=== PATIENT | female | born 1995 | race Caucasian/White ===

== ENCOUNTER 2018-08-21 00:34 | Observation (INO) ==
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
[2018-08-21] MEDS ORDERED: Ondansetron 4 MG/2 ML VIAL IVP ONE (01:28)
[2018-08-21] MEDS ORDERED: Naloxone 0.4 MG/ML INJ IVP PRN (05:38)
[2018-08-21 06:40] LABS: Basophils % 0.3 %; Eosinophils % 0.3 %; Hematocrit 37.1 % (35.3-44.9); Hemoglobin 11.6 g/dL (11.5-15.4); Immature Granulocytes % 0.4 % (0-4); Lymphocytes # 1.4 K/mcL (0.6-4.6); Lymphocytes % 8.5 %; Mean Corpuscular HGB Conc 31.3 g/dL (31.6-35.5); Mean Corpuscular Hemoglobin 24.8 pg (28.0-33.3); Mean Corpuscular Volume 79.3 fL (83.0-100.0); Mean Platelet Volume 9.1 fL (9.4-12.4); Monocytes # 0.6 K/mcL (0.0-1.3); Monocytes % 3.8 %; Neutrophils # 13.9 K/mcL (1.6-8.9); Platelet Count 391 K/mcL (140-400); Red Blood Count 4.68 M/mcL (3.82-4.97); Red Cell Distribution Width 17.5 % (11.5-14.5); Segmented Neutrophils % 86.7 %
[2018-08-21 06:58] LABS: Alanine Aminotransferase 10 Units/L (7-52); Albumin 3.9 g/dL (3.5-5.7); Albumin/Globulin Ratio 1.4 (1.1-2.2); Alkaline Phosphatase 66 Units/L (34-104); Aspartate Amino Transferase 9 Units/L (13-39); BUN/Creatinine Ratio 11 (6-26); Bilirubin,Total 0.3 mg/dL (0.3-1.0); Blood Urea Nitrogen 6 mg/dL (6-20); Calcium 9.1 mg/dL (8.6-10.3); Carbon Dioxide 22 mEq/L (23-29); Chloride 107 mEq/L (98-107); Globulin 2.7 g/dL (2.4-3.5); Glucose 134 mg/dL (70-105); Magnesium 1.7 mg/dL (1.6-2.6); Osmolality,Calculated 286 (280-300); Sodium 138 mEq/L (136-145); Total Protein 6.6 g/dL (6.4-8.9); eGFR For Non-African Americans > 60 (> 60)
[2018-08-21 11:37] VITALS: BP 122/54
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
[2018-08-21 13:49] LABS: Bilirubin,Urine Negative (Negative); Blood,Urine Negative (Negative); Clarity,Urine Clear (Clear); Color,Urine Dark Yellow (Yellow); Glucose,Urine (UA) Normal (Normal); Ketones,Urine Negative (Negative); Leukocyte Esterase,Urine Negative (Negative); Nitrite,Urine Negative (Negative); Protein,Urine 30 mg/dL (Neg-Trace); Urobilinogen,Urine Normal (Normal)
--- NOTE | 2018-08-21 13:50 | Discharge Summary ---
- NOTES TO OUTPATIENT PROVIDER Notes to Outpatient Provider: Patient with PMHx of substance abuse, reported history of depression was admitted for the initial concern of OD. She later changed her story and stated that she never had intention to harm herself nor took the meds. She was observed overnight without any events and will be d ischarged home on PO lexapro 10mg per psych recs. No inpatient psychiatric admission was recommended. Orders not resulted at time of discharge: Pending orders 08/21/18 13:40 Urinalysis Reflex Cult & Micro [URIN] Routine Date of Encounter: 08/21/18 Time of Encounter: 11:00 - Discharge Diagnosis (1) Overdose Priority: Primary Status: Acute Qualifiers: Qualified Code(s): T50.902A - Poisoning by unspecified drugs, medicaments and biological substances, intentional self-harm, initial encounter (2) DVT prophylaxis Priority: Secondary Status: Acute (3) Adjustment disorder with mixed anxiety and depressed mood Priority: Secondary Status: Acute Hospital course: Ms. Womack is a 22 year old female with PMHx of substance abuse, reported history of depression was admitted for the initial concern of OD. UDS +Ve for amphetamine and marijuana. She later changed her story and stated that she never had intention to harm herself nor took the meds. She was observed overnight without any events and will be discharged home on PO lexapro 10mg per psych recs. No inpatient psychiatric admission was recommended. Despite leukocytosis of 17.4, she did not have any signs and symptoms of infection with negative CXR/UA. Discharge discussed with: patient, nurse - Time Spent with Patient Total time spent providing and/or coordinating discharge services: 25 mins - Discharge Medications Prescriptions: Escitalopram [Lexapro] 10 mg PO DAILY #30 tablet Home Medications: Escitalopram [Lexapro] 10 mg PO DAILY #30 tablet 08/21/18 [Rx] Allergies/Adverse Reactions: Allergy/AdvReac Type Severity Reaction Status Date / Time No Known Allergies Allergy Verified 07/21/15 12:19 Date of admission: 08/21/18 00:34 Primary care physician: PCP NONE Consults: 08/21/18 03:11 Consult to Psychiatry [CONS] Routine Consulting Provider: Psychiatry Brenda Reason consult: Other Other reason and/or additional details: medication overdose - Constitutional Vitals: Temp Pulse Resp BP Pulse Ox 98.9 F 111 18 122/54 95 08/21/18 11:00 08/21/18 11:00 08/21/18 11:00 08/21/18 11:00 08/21/18 13:00 Exam: Gen.: Vitals noted. No acute distress. Alert, awake and oriented * 3 to person, place, and time Cardiac: RRR, no murmur, +S1/S2, No BLE edema Pulmonary: CTA bilaterally, no wheezes, rales or rhonchi Abdomen: soft, nontender, BS noted, no guarding, non-distended. Neuro: grossly non-focal - Patient Status Disposition: Home, Self-Care Condition: Fair Functional capacity at discharge: independent ambulation Overall status at discharge: patient is back to baseline - Discharge Instructions Follow Up With: Luz Nix MD [Partnered Physician] - NONE,PCP [Primary Care Provider] - Additional Instructions: Started on PO Lexapro 10mg QD Follow up outpatient for counseling and outpatient psychiatric treatment - Diet and Activity Activity: resume usual activities as tolerated Diet: regular diet
[2018-08-21 13:53] LABS: Bacteria,Urine Moderate per hpf (None-Few); Hyaline Casts,Urine None Seen per lpf (None-Few); Squamous Epithelial Cell,Urine Many per lpf (None-Few)
--- NOTE | 2018-08-23 21:21 | Electrocardiograph Report ---
[address] [address] Test Date: 2018-08-21 Pat Name: Christal Womack Department: 110 Room: 2N07 Gender: F Pairer Odds: : 1995 Requested By: Lubna Layton Order Number: [id number] Reading MD: eMrcy Castellanos Measurements Intervals [place] Rate: 120 P: 74 [place]: 168 QRS: 70 QRSD: 94 T: 51 QT: 427 QTc: 498 Interpretive Statements SINUS TACHYCARDIA NONSPECIFIC T-WAVE ABNORMALITY Electronically Signed On 08-23-2018 21:19:42 EST by Mercy Castellanos
== END 2018-08-21 16:40 | disposition home or self-care (01) ==
LOC: 2NNU → SUATTDRO 00:34
PROVIDERS: ADMIT Internal Medicine; ATTEND Internal Medicine

== ENCOUNTER 2018-12-14 06:34 | Inpatient (IN) ==
[2018-12-14 07:16] LABS: Bilirubin,Urine Negative (Negative); Blood,Urine Negative (Negative); Clarity,Urine Clear (Clear); Color,Urine Yellow (Yellow); Glucose,Urine (UA) Normal (Normal); Ketones,Urine Negative (Negative); Leukocyte Esterase,Urine Negative (Negative); Nitrite,Urine Negative (Negative); PH,Urine 5.5 pH Units (5.0-8.0); Protein,Urine Negative (Neg-Trace); Specific Gravity,Urine 1.026 (1.010-1.025); Urobilinogen,Urine Normal (Normal)
[2018-12-14 07:17] LABS: Amphetamine Screen,Urine Negative ng/mL (Cutoff=1000); Barbiturate Screen,Urine Negative ng/mL (Cutoff=200)
[2018-12-14 07:18] LABS: Benzodiazepines Screen,Urine Negative ng/mL (Cutoff=300); Cannabinoid Screen,Urine Negative ng/mL (Cutoff = 50); Cocaine Screen,Urine Negative ng/mL (Cutoff= 300); Opiate Screen,Urine Negative ng/mL (Cutoff=300); Phencyclidine Screen,Urine Negative ng/mL (Cutoff=25)
[2018-12-14] MEDS ORDERED: Tdap (Boostrix) Vaccine 0.5 ML SYRINGE IM ONE (07:24)
--- NOTE | 2018-12-14 07:29 | Emergency Department Note ---
Disposition Clinical Impression: Suicidal ideation Disposition: Admitted As Inpatient Condition: Good Time of Disposition: 11:54 Psych HPI - General Chief Complaint: ED Psychiatric Symptoms Stated Complaint: SI Time Seen by Provider: 12/14/18 06:40 Source: patient Mode of arrival: ambulatory Limitations: no limitations Nursing Notes Reviewed: Yes Vital Signs Reviewed: Yes - History of Present Illness HPI Narrative: Alert and oriented nontoxic-appearing 23-year-old female presents for evaluation of agitation and progressively worsening suicidal ideation. She states yesterday she had a court date and was provided paperwork that would help her get arranged to see a counselor for both mental health and substance abuse. She states that sometime during yesterday evening, she had misplaced her paperwork. She states that this caused fever increasingly more agitated and states "I took it out of my family and then on myself". She reports she could not verbally aggressive with family members. She then took a kitchen knife and attempted to cut her throat. Very small superficial laceration noted to the anterior neck. Bleeding controlled at this time. She states a history of prior attempts by cutting her neck as well as her wrist. Tetanus immunization status is not up-to-date. She denies any homicidal ideation. She denies any auditory or visual hallucinations. She denies any alcohol use. She does admit to recreational drug use of a polysubstances including Xanax, Valium, "pain pills", methamphetamine, and heroin. She states that she last used recreational drugs earlier this week and admits to this being "nerve pills". Pt complaint: suicidal ideation, feels depressed, other (Agitation) Duration: constant History of similar episodes: Yes Improves with: none Worsens with: none Context: recent drug abuse Alleged intoxication: No Associated Psychiatric Symptoms: suicidal ideation Associated symptoms: Reports: denies other symptoms Traumatic symptoms: denies traumatic injury Treatments prior to arrival: none Self harm or harm to others: admits thoughts of self harm, has acted on plan - Related Data Home Medications Medication Instructions Recorded Confirmed No Known Home Drugs 09/22/18 09/22/18 Allergies Allergy/AdvReac Type Severity Reaction Status Date / Time No Known Allergies Allergy Verified 07/21/15 12:19 All systems ED: reviewed and negative except as stated. Review of Systems: As Per HPI Constitutional: Denies: fever, chills, weakness, weight change Eyes: Denies: eye pain, eye discharge, vision change ENT ED: Denies: ear pain, throat pain, dental pain, hearing loss, epistaxis, congestion, dysphagia Cardiovascular: Denies: chest pain, palpitations, dyspnea on exertion, edema, syncope Respiratory: Denies: cough, dyspnea, wheezes, hemoptysis, stridor Gastrointestinal: Denies: abdominal pain, nausea, vomiting, diarrhea, constipation, hematemesis, melena, hematochezia Genitourinary: Denies: dysuria, frequency, hematuria, discharge Musculoskeletal: Denies: back pain, neck pain, arthralgia, myalgia Integumentary: Denies: rash, abrasion, lesions Neurological: Denies: headache, weakness, numbness, paresthesias, confusion, abnormal gait, vertigo Psychiatric: Reports: as per HPI, depression, suicidal thoughts, other (Agitation). Denies: anxiety, homicidal thoughts, auditory hallucinations, visual hallucinations Endocrine: Denies: fatigue Hematological/Lymphatic: Denies: easy bleeding, easy bruising Allergic/Immunologic: Denies: facial swelling, urticaria Past Medical History - Past Medical History Attestation: Yes The following information was validated with the patient. Source: patient, nursing notes reviewed Medical history: Reports: seizures, TIA, other Surgical history: Reports: orthopedic, other (Excision of a lesion from her foot) Psychiatric history: Reports: depression, prior suicide attempt PLATING OPERATOR history: Reports: no PLATING OPERATOR history - Social History Smoking Status: Never smoker Smokeless Tobacco Status: No Alcohol use: Reports: none Drug use: Reports: marijuana, other Physical Exam - General Limitations: no limitations General appearance: alert, in no apparent distress - Head Head exam: atraumatic, normocephalic, normal inspection - Eye Eye exam: Present: normal appearance, PERRL, EOMI. Absent: conjunctival injection - ENT ENT exam: mucous membranes moist - Neck Neck exam: Present: full ROM, other (Superficial abrasion noted to the anterior neck. Bleeding controlled at this time. Wound will not require primary closure.) - Chest Chest inspection: Present: normal inspection, symmetric chest wall rise - Respiratory Respiratory exam: Present: normal lung sounds bilaterally. Absent: respiratory distress, wheezes, stridor, accessory muscle use, prolonged expiratory phase - Cardiovascular Cardiovascular exam: Present: regular rate, normal rhythm, normal heart sounds - Abdominal Exam Abdominal exam: Present: soft, Non-Tender, normal bowel sounds - Extremities Exam Extremities exam: Present: normal inspection, full ROM - Neurological Exam Neurological exam: Present: alert, oriented X3, normal gait - Psychiatric Psychiatric exam: Present: suicidal ideation - Skin Skin exam: Present: warm, dry Course Course Narrative: 1150: The patient has been evaluated by 1A and it has been determined that she will be admitted to the inpatient psychiatric facility here for further evaluation. [place] slip is signed and on the chart. Vital Signs Temperature 98.1 F 12/14/18 06:35 Pulse Rate 86 12/14/18 06:35 Respiratory Rate 18 12/14/18 06:35 Blood Pressure 120/71 12/14/18 06:35 O2 Sat by Pulse Oximetry 100 12/14/18 06:35 Temperature 98.1 F 12/14/18 06:35 Pulse Rate 86 12/14/18 06:35 Respiratory Rate 18 12/14/18 06:35 Blood Pressure 120/71 12/14/18 06:35 O2 Sat by Pulse Oximetry 100 12/14/18 06:35 Oxygen Delivery Oxygen Delivery Room Air Psych - Lab Data Lab results reviewed: Yes I reviewed the patient's lab results. Lab results narrative: Lab Results 12/14/18 12/14/18 12/14/18 Range/Units 07:02 07:02 07:02 WBC (4.3-11.1) K/mcL RBC (3.82-4.97) M/mcL Hgb (11.5-15.4) g/dL Hct (35.3-44.9) % MCV (83.0-100.0) fL MCH (28.0-33.3) pg MCHC (31.6-35.5) g/dL RDW (11.5-14.5) % Plt Count (140-400) K/mcL MPV (9.4-12.4) fL Immature Gran % (0-4) % Seg Neutrophils % % Lymphocytes % % Monocytes % % Eosinophils % % Basophils % % Neutrophils # (1.6-8.9) K/mcL Lymphocytes # (0.6-4.6) K/mcL Monocytes # (0.0-1.3) K/mcL Eosinophils # (0.0-0.6) K/mcL Basophils # (0.0-0.2) K/mcL Sodium (136-145) mEq/L Potassium (3.5-5.1) mEq/L Chloride (98-107) mEq/L Carbon Dioxide (23-29) mEq/L BUN (6-20) mg/dL Creatinine (0.60-1.20) mg/dL Est GFR ( Amer) (> 60) Est GFR (Non-Af Amer) (> 60) BUN/Creatinine Ratio (6-26) Glucose (70-105) mg/dL Calculated Osmolality (280-300) Calcium (8.6-10.3) mg/dL Urine Color Yellow (Yellow) Urine Clarity Clear (Clear) Urine pH 5.5 (5.0-8.0) pH Units Ur Specific Gallant 1.026 H (1.010-1.025) Urine Protein Negative (Neg-Trace) mg/dL Urine Glucose (UA) Normal (Normal) mg/dL Urine Ketones Negative (Negative) mg/dL Urine Blood Negative (Negative) Urine Nitrite Negative (Negative) Urine Bilirubin Negative (Negative) Urine Urobilinogen Normal (Normal) mg/dL Ur Leukocyte Esterase Negative (Negative) Urine Test Negative (Negative) Salicylates (15.0-30.0) mg/dL Urine Opiates Screen Negative (Voyaxl=962) ng/mL Acetaminophen (10-20) mcg/mL Ur Barbiturates Screen Negative (Cnzjov=309) ng/mL Ur Phencyclidine Scrn Negative (Cutoff=25) ng/mL Ur Amphetamines Screen Negative (Rtwgqr=2852) ng/mL U Benzodiazepines Scrn Negative (Nvhiwm=567) ng/mL Urine Cocaine Screen Negative (Cutoff= 300) ng/mL U Marijuana (THC) Screen Negative (Cutoff = 50) ng/mL Ur Drug Screen Interp See Below Ethyl Alcohol (Less than 10) mg/dL 12/14/18 12/14/18 Range/Units 07:04 07:04 WBC 9.9 (4.3-11.1) K/mcL RBC 5.11 H (3.82-4.97) M/mcL Hgb 13.0 (11.5-15.4) g/dL Hct 41.5 (35.3-44.9) % MCV 81.2 L (83.0-100.0) fL MCH 25.4 L (28.0-33.3) pg MCHC 31.3 L (31.6-35.5) g/dL RDW 16.9 H (11.5-14.5) % Plt Count 390 (140-400) K/mcL MPV 9.5 (9.4-12.4) fL Immature Gran % 0.4 (0-4) % Seg Neutrophils % 66.1 % Lymphocytes % 23.0 % Monocytes % 7.3 % Eosinophils % 2.5 % Basophils % 0.7 % Neutrophils # 6.5 (1.6-8.9) K/mcL Lymphocytes # 2.3 (0.6-4.6) K/mcL Monocytes # 0.7 (0.0-1.3) K/mcL Eosinophils # 0.3 (0.0-0.6) K/mcL Basophils # 0.1 (0.0-0.2) K/mcL Sodium 138 (136-145) mEq/L Potassium 4.1 (3.5-5.1) mEq/L Chloride 105 (98-107) mEq/L Carbon Dioxide 27 (23-29) mEq/L BUN 15 (6-20) mg/dL Creatinine 0.53 L (0.60-1.20) mg/dL Est GFR ( Amer) > 60 (> 60) Est GFR (Non-Af Amer) > 60 (> 60) BUN/Creatinine Ratio 28 H (6-26) Glucose 87 (70-105) mg/dL Calculated Osmolality 286 (280-300) Calcium 9.2 (8.6-10.3) mg/dL Urine Color (Yellow) Urine Clarity (Clear) Urine pH (5.0-8.0) pH Units Ur Specific Gallant (1.010-1.025) Urine Protein (Neg-Trace) mg/dL Urine Glucose (UA) (Normal) mg/dL Urine Ketones (Negative) mg/dL Urine Blood (Negative) Urine Nitrite (Negative) Urine Bilirubin (Negative) Urine Urobilinogen (Normal) mg/dL Ur Leukocyte Esterase (Negative) Urine Test (Negative) Salicylates < 2.5 L (15.0-30.0) mg/dL Urine Opiates Screen (Yiqdct=253) ng/mL Acetaminophen < 10 L (10-20) mcg/mL Ur Barbiturates Screen (Xeqspc=788) ng/mL Ur Phencyclidine Scrn (Cutoff=25) ng/mL Ur Amphetamines Screen (Efcpqw=5094) ng/mL U Benzodiazepines Scrn (Dzrmtn=937) ng/mL Urine Cocaine Screen (Cutoff= 300) ng/mL U Marijuana (THC) Screen (Cutoff = 50) ng/mL Ur Drug Screen Interp Ethyl Alcohol < 10 (Less than 10) mg/dL Result diagrams: 12/14/18 07:04 12/14/18 07:04 Lab Results 12/14/18 12/14/18 12/14/18 Range/Units 07:02 07:02 07:02 WBC (4.3-11.1) K/mcL RBC (3.82-4.97) M/mcL Hgb (11.5-15.4) g/dL Hct (35.3-44.9) % MCV (83.0-100.0) fL MCH (28.0-33.3) pg MCHC (31.6-35.5) g/dL RDW (11.5-14.5) % Plt Count (140-400) K/mcL MPV (9.4-12.4) fL Immature Gran % (0-4) % Seg Neutrophils % % Lymphocytes % % Monocytes % % Eosinophils % % Basophils % % Neutrophils # (1.6-8.9) K/mcL Lymphocytes # (0.6-4.6) K/mcL Monocytes # (0.0-1.3) K/mcL Eosinophils # (0.0-0.6) K/mcL Basophils # (0.0-0.2) K/mcL Sodium (136-145) mEq/L Potassium (3.5-5.1) mEq/L Chloride (98-107) mEq/L Carbon Dioxide (23-29) mEq/L BUN (6-20) mg/dL Creatinine (0.60-1.20) mg/dL Est GFR ( Amer) (> 60) Est GFR (Non-Af Amer) (> 60) BUN/Creatinine Ratio (6-26) Glucose (70-105) mg/dL Calculated Osmolality (280-300) Calcium (8.6-10.3) mg/dL Urine Color Yellow (Yellow) Urine Clarity Clear (Clear) Urine pH 5.5 (5.0-8.0) pH Units Ur Specific Gallant 1.026 H (1.010-1.025) Urine Protein Negative (Neg-Trace) mg/dL Urine Glucose (UA) Normal (Normal) mg/dL Urine Ketones Negative (Negative) mg/dL Urine Blood Negative (Negative) Urine Nitrite Negative (Negative) Urine Bilirubin Negative (Negative) Urine Urobilinogen Normal (Normal) mg/dL Ur Leukocyte Esterase Negative (Negative) Urine Test Negative (Negative) Salicylates (15.0-30.0) mg/dL Urine Opiates Screen Negative (Mmubwv=812) ng/mL Acetaminophen (10-20) mcg/mL Ur Barbiturates Screen Negative (Cenqyg=363) ng/mL Ur Phencyclidine Scrn Negative (Cutoff=25) ng/mL Ur Amphetamines Screen Negative (Pgdajp=3327) ng/mL U Benzodiazepines Scrn Negative (Dlutcq=670) ng/mL Urine Cocaine Screen Negative (Cutoff= 300) ng/mL U Marijuana (THC) Screen Negative (Cutoff = 50) ng/mL Ur Drug Screen Interp See Below Ethyl Alcohol (Less than 10) mg/dL 12/14/18 12/14/18 Range/Units 07:04 07:04 WBC 9.9 (4.3-11.1) K/mcL RBC 5.11 H (3.82-4.97) M/mcL Hgb 13.0 (11.5-15.4) g/dL Hct 41.5 (35.3-44.9) % MCV 81.2 L (83.0-100.0) fL MCH 25.4 L (28.0-33.3) pg MCHC 31.3 L (31.6-35.5) g/dL RDW 16.9 H (11.5-14.5) % Plt Count 390 (140-400) K/mcL MPV 9.5 (9.4-12.4) fL Immature Gran % 0.4 (0-4) % Seg Neutrophils % 66.1 % Lymphocytes % 23.0 % Monocytes % 7.3 % Eosinophils % 2.5 % Basophils % 0.7 % Neutrophils # 6.5 (1.6-8.9) K/mcL Lymphocytes # 2.3 (0.6-4.6) K/mcL Monocytes # 0.7 (0.0-1.3) K/mcL Eosinophils # 0.3 (0.0-0.6) K/mcL Basophils # 0.1 (0.0-0.2) K/mcL Sodium 138 (136-145) mEq/L Potassium 4.1 (3.5-5.1) mEq/L Chloride 105 (98-107) mEq/L Carbon Dioxide 27 (23-29) mEq/L BUN 15 (6-20) mg/dL Creatinine 0.53 L (0.60-1.20) mg/dL Est GFR ( Amer) > 60 (> 60) Est GFR (Non-Af Amer) > 60 (> 60) BUN/Creatinine Ratio 28 H (6-26) Glucose 87 (70-105) mg/dL Calculated Osmolality 286 (280-300) Calcium 9.2 (8.6-10.3) mg/dL Urine Color (Yellow) Urine Clarity (Clear) Urine pH (5.0-8.0) pH Units Ur Specific [place] (1.010-1.025) Urine Protein (Neg-Trace) mg/dL Urine Glucose (UA) (Normal) mg/dL Urine Ketones (Negative) mg/dL Urine Blood (Negative) Urine Nitrite (Negative) Urine Bilirubin (Negative) Urine Urobilinogen (Normal) mg/dL Ur Leukocyte Esterase (Negative) Urine Test (Negative) Salicylates < 2.5 L (15.0-30.0) mg/dL Urine Opiates Screen (Lyltaj=773) ng/mL Acetaminophen < 10 L (10-20) mcg/mL Ur Barbiturates Screen (Lorvvr=431) ng/mL Ur Phencyclidine Scrn (Cutoff=25) ng/mL Ur Amphetamines Screen (Ffnsgs=7803) ng/mL U Benzodiazepines Scrn (Yddnhz=197) ng/mL Urine Cocaine Screen (Cutoff= 300) ng/mL U Marijuana (THC) Screen (Cutoff = 50) ng/mL Ur Drug Screen Interp Ethyl Alcohol < 10 (Less than 10) mg/dL Psychiatric Medical Clearance - Medical Clearance Checklist Does the patient have a NEW psychiatric condition?: No Any abnormalities indicating possible medical illness?: No Any history of medical issues?: No Medical History: No Social History Section defined Any abnormal vital signs prior to transfer?: No Current Vitals: Last Vital Signs Temp 98.1 F 12/14/18 06:35 Pulse 86 12/14/18 06:35 Resp 18 12/14/18 06:35 BP 120/71 12/14/18 06:35 Pulse Ox 100 12/14/18 06:35 Is the patient intoxicated or cognitively impaired?: No Psychiatric Lab Panel: Drug Levels and Toxicity 12/14/18 12/14/18 07:02 07:04 Urine Opiates Screen Negative Acetaminophen < 10 L Ur Barbiturates Screen Negative Ur Phencyclidine Scrn Negative Ur Amphetamines Screen Negative U Benzodiazepines Scrn Negative Urine Cocaine Screen Negative U Marijuana (THC) Screen Negative Ethyl Alcohol < 10 Any abnormalities on the physical exam?: No Any abnormal labs?: No Abnormal Labs: Abnormal lab results RBC 5.11 M/mcL (3.82-4.97) H 12/14/18 07:04 MCV 81.2 fL (83.0-100.0) L 12/14/18 07:04 MCH 25.4 pg (28.0-33.3) L 12/14/18 07:04 MCHC 31.3 g/dL (31.6-35.5) L 12/14/18 07:04 RDW 16.9 % (11.5-14.5) H 12/14/18 07:04 0.53 mg/dL (0.60-1.20) L 12/14/18 07:04 28 (6-26) H 12/14/18 07:04 Ur Specific Gallant 1.026 (1.010-1.025) H 12/14/18 07:02 Salicylates < 2.5 mg/dL (15.0-30.0) L 12/14/18 07:04 Acetaminophen < 10 mcg/mL (10-20) L 12/14/18 07:04 Does the patient require durable medical equiptment?: No Is the patient ambulatory?: Yes Is the patient a fall risk?: No Has the patient been medically cleared?: Yes Any acute medical condition require Tx prior to transfer?: No Statement of Medical Clearance: I have evaluated the patient, reviewed diagnostic information, and certify that the patient's medical condition is sufficiently stable that transfer to the psychiatric unit does not pose a significant risk of deterioration. Attestation Statement - Attestation Attestation: I, Ceasar Khan, examined this patient and my medical decision-making was reviewed with the EYE SURGEON/PA/Advanced Practice Nurse/Resident Physician. I agree with the documented findings, disposition and treatment plan as described except to the extent set forth below. 23-year-old female presents emergency department for concerns suicidal ideation and agitation. Patient states she missed court date yesterday, became very upset and was involved in a verbal argument with her family. Patient became upset and held knife to her neck, there is a small superficial laceration to the side of neck. Patient states she had suicidal ideation of the time, denies it now however because she had acted on it and was very impulsive she was recommended to be admitted to the hospital by the behavioral health specialist who evaluated her after she was medically cleared. Patient is comfortable with this plan of action.
[2018-12-14 07:44] LABS: Hematocrit 41.5 % (35.3-44.9); Mean Corpuscular HGB Conc 31.3 g/dL (31.6-35.5); Mean Corpuscular Hemoglobin 25.4 pg (28.0-33.3); Mean Corpuscular Volume 81.2 fL (83.0-100.0); Mean Platelet Volume 9.5 fL (9.4-12.4); Platelet Count 390 K/mcL (140-400); Red Blood Count 5.11 M/mcL (3.82-4.97); Red Cell Distribution Width 16.9 % (11.5-14.5); Segmented Neutrophils % 66.1 %
[2018-12-14 07:45] LABS: Basophils # 0.1 K/mcL (0.0-0.2); Basophils % 0.7 %; Eosinophils # 0.3 K/mcL (0.0-0.6); Eosinophils % 2.5 %; Immature Granulocytes % 0.4 % (0-4); Lymphocytes # 2.3 K/mcL (0.6-4.6); Monocytes # 0.7 K/mcL (0.0-1.3); Monocytes % 7.3 %; Neutrophils # 6.5 K/mcL (1.6-8.9)
[2018-12-14 07:50] LABS: Acetaminophen < 10 mcg/mL (10-20); BUN/Creatinine Ratio 28 (6-26); Blood Urea Nitrogen 15 mg/dL (6-20); Calcium 9.2 mg/dL (8.6-10.3); Carbon Dioxide 27 mEq/L (23-29); Chloride 105 mEq/L (98-107); Ethanol < 10 mg/dL (Less than 10); Glucose 87 mg/dL (70-105); Osmolality,Calculated 286 (280-300); Potassium 4.1 mEq/L (3.5-5.1); Salicylate < 2.5 mg/dL (15.0-30.0); Sodium 138 mEq/L (136-145); eGFR For Non-African Americans > 60 (> 60)
[2018-12-14] MEDS ORDERED: Haloperidol Lactate 5 MG/ML VIAL IM PRN (15:04)
[2018-12-14] MEDS ORDERED: *HR* LORazepam 2 MG/ML VIAL IM PRN (15:04)
[2018-12-14] MEDS ORDERED: Mag Hydrox/Al Hydrox/Simeth 30 ML UDC PO PRN (15:04)
[2018-12-14] MEDS ORDERED: Acetaminophen 325 MG TABLET PO PRN (15:04)
[2018-12-14] MEDS ORDERED: *HR* LORazepam 1 MG TABLET PO PRN (15:04)
[2018-12-14] MEDS ORDERED: MOM Conc 10 ML UD.LIQ PO PRN (15:04)
[2018-12-14] MEDS: traZODone 50 MG TABLET PO PRN (21:03)
[2018-12-14] MEDS: hydrOXYzine pamoate 25 MG CAPSULE PO PRN (21:03)
--- NOTE | 2018-12-15 11:40 | Psychiatry History & Physical ---
Date of Encounter: 12/15/18 Time of Encounter: 10:15 History of Present Illness Patient Stated Chief Complaint: "I'm okay" Medicare Admission Attestation: For traditional Medicare patients the provided hospital inpatient services are reasonable and necessary and in the case of services not specified as inpatient-only under 42 CFR 419.22 (n), that they are appropriately provided as inpatient services in accordance 42 CFR 412.3. For Critical Access Hospital the patient may reasonably be expected to be discharged or transferred to a hospital within 96 hours after admission to the Critical Access Hospital. Admitted From: Emergency Dept Plans for Post Hospital Care: Home History of Present Illness: Ms. Womack is a 23 year old female who was admitted via the ED after being brought to the hospital after threatening suicide and cutting her throat superficially with a kitchen knife after an argument with her parents. She reports to me that her home life is a very stressful situation. She describes the precipitating event that caused her to do what she did. She came home from court yesterday, after her hearing for Domestic Violence charges by her mother, with paperwork stating that she had to get anger management counseling and with the information on seeing her chief medical officer. She states she laid it on the bed in her room with some other paperwork. When she came back, the paperwork was gone. She reports that she said something to her parents about it, and they were making fun her laughing. Stating the paperwork was never there. "They know stuff like that upsets me and they were just laughing. So I just snapped. I went to my room and slit my throat with a kitchen knife". Patient states that she has done this before. The abrasions on her neck or very small but it is apparent that something did cut her neck. She states that she has problems with depression and that part of the court ordered for her was to get help with her mental health. She reports lately, on/off more days than not, in the past 4 years she is felt helpless and hopeless. She has low energy and does not feel like doing anything she used to like to do. She states that she sleeps too much when she is not taking math and has a decreased appetite. She is not future oriented. She denies any auditory or visual hallucinations. She denies going days and days without sleep her need for sleep except that she is taking stimulants. There is no other history of impulsive behavior in regards to spending too much, gambling or buying things online. She does get irritated easily. There is no history of mind reading or paranoia, nor feeling that someone is out to get her. It does not appear she meets criteria for any type of zeynep or psychotic thought disorder. She states that she would like help and treatment for her depression. We review risks benefits and side effects of Zoloft is an antidepressant. She consents to starting a low-dose Zoloft targeting her depression. We discussed briefly her current probation situation as she has domestic violence charges against her brought on by her mother. I asked her if under the court order if she was allowed to be living with her parents as her mother was her victim. She states now she is not supposed to but the courts know she is living there as she has no place else to go. She does not have a drivers license, she does not have a car and socially she is very dependent on her parents. She has never been gainfully employed with a career. She was in special classes in high school and did graduate, but never did any higher education after high school. She states that she does not know what to do and that basically she is stuck living at her home with her parents. She helps her mother out who she reports is disabled. Plan: We will get social media manager on our unit to attempt to contact [facility] to set up outpatient mental health follow-up as well as potential outpatient housing. I asked the patient to contact her chief medical officer to tell her chief medical officer what happened and to potentially give the unit a call to discuss the housing situation and what the courts are ordering. She said she would do this. Past Med Surg Social Fam HX - Past Medical History Medical history: seizures, TIA, other - Past Psychiatric History Psychiatric history: Reports: anxiety, depression, prior suicide attempt Past psychiatric history details: Patient reports multiple suicide attempts in the past 4 years, but has never had inpatient or outpatient treatment. Family psychiatric history: No (Family history of substance abuse.) Family History of Suicide: None - Past Surgical History Surgical History: orthopedic, other (Excision of a lesion from her foot) - Social History Smoking Status: Never smoker Smokeless Tobacco Status: No Alcohol use: none Drug use: marijuana, methamphetamine Occupational status: unemployed Current living situation: With Family (Mother and father) Activity Level: Independent ambulation Recent Out of Country Travel Within the Last 8 Weeks: No Exposure or Possible Exposure to Illness During Travel: No Additional social history: Patient was recently arrested for Domestic Violence against her mother. She is on probation but is living in her mother's home. [facility]. She does not have a drivers license and has never been gainfully employeed with a career. - Family History Mother Adopted: Yes Name: Lisa Living Status: Still Living Hx Family Cardiac Disorders: No Hx Family Respiratory Disorders: Yes Hx Family Cancer: Yes Hx Family Genitourinary Disorders: No Hx Family Endocrine Disorder: Yes Hx Family Musculoskeletal Disorders: No Hx Family Neuromuscular Disorders: No Hx Family Neurologic Disorders: No Hx Family HEENT Disorders: No Hx Family Autoimmune Disorders: No Hx Family Reproductive Disorders: No Hx Family Psychosocial Disorders: No Hx Family Medical Disorders: No Medications & Allergies No Known Home Drugs 09/22/18 [History] Allergy/AdvReac Type Severity Reaction Status Date / Time No Known Allergies Allergy Verified 07/21/15 12:19 Review of Systems Psychiatric: Reports: depression, anxiety, abnormal sleep pattern, suicidal ideation, change in appetite, anhedonia, difficulty concentrating, hopelessness, irritability Exam - HEENT Head exam IM: Present: atraumatic Eye exam IM: Present: EOMI - Neurological Neurological exam: Present: CN II-XII intact (per ED medical clearance), alert - Skin Skin exam IM: Present: abrasion (superficial abrasion from knife approxiamtely 2 in long midline throat. No erythema or sign of infection ) - Constitutional Vitals: Temp Pulse Resp BP Pulse Ox 98.4 F 86 18 99/72 100 12/14/18 20:42 12/14/18 20:42 12/14/18 20:42 12/14/18 20:42 12/14/18 20:42 General appearance: age & developmentally appropriate, well-groomed, well- nourished, obese - Musculoskeletal Gait: normal Station: relaxed Strength & Tone: normal for patient - Psychiatric Patient Orientation: Yes Person, Yes Time, Yes Place, Yes Circumstance Level of alertness: Alert Behavior: calm, cooperative Psychomotor activity: Normal Eye Contact: Maintains Eye Contact Mood Description: Depressed Affect description: congruent with mood, flat Speech Volume: Normal Speech pattern: normal rate, normal rhythm, normal tone, fluent Language & Vocabulary: consistent with education Thought Process: Intact, Linear Thought Content: Yes Suicidal ideation (subsided since out of her parents house and being admitted) Attention Span Ability: Capable of Focused Attention Memory Description: Grossly Intact Patient Reliability: Not Reliable Historian Fund of knowledge: Yes below average Intelligence Estimate: Below Average Judgment: Limited Insight: Partial Results - Labs Labs: Laboratory Last Values WBC 9.9 K/mcL (4.3-11.1) 12/14/18 07:04 RBC 5.11 M/mcL (3.82-4.97) H 12/14/18 07:04 Hgb 13.0 g/dL (11.5-15.4) 12/14/18 07:04 Hct 41.5 % (35.3-44.9) 12/14/18 07:04 MCV 81.2 fL (83.0-100.0) L 12/14/18 07:04 MCH 25.4 pg (28.0-33.3) L 12/14/18 07:04 MCHC 31.3 g/dL (31.6-35.5) L 12/14/18 07:04 RDW 16.9 % (11.5-14.5) H 12/14/18 07:04 Plt Count 390 K/mcL (140-400) 12/14/18 07:04 MPV 9.5 fL (9.4-12.4) 12/14/18 07:04 Immature Gran % 0.4 % (0-4) 12/14/18 07:04 Seg Neutrophils % 66.1 % 12/14/18 07:04 23.0 % 12/14/18 07:04 7.3 % 12/14/18 07:04 2.5 % 12/14/18 07:04 0.7 % 12/14/18 07:04 6.5 K/mcL (1.6-8.9) 12/14/18 07:04 2.3 K/mcL (0.6-4.6) 12/14/18 07:04 0.7 K/mcL (0.0-1.3) 12/14/18 07:04 0.3 K/mcL (0.0-0.6) 12/14/18 07:04 0.1 K/mcL (0.0-0.2) 12/14/18 07:04 Sodium 138 mEq/L (136-145) 12/14/18 07:04 Potassium 4.1 mEq/L (3.5-5.1) 12/14/18 07:04 Chloride 105 mEq/L (98-107) 12/14/18 07:04 Carbon Dioxide 27 mEq/L (23-29) 12/14/18 07:04 BUN 15 mg/dL (6-20) 12/14/18 07:04 0.53 mg/dL (0.60-1.20) L 12/14/18 07:04 Est GFR ( Amer) > 60 (> 60) 12/14/18 07:04 Est GFR (Non-Af Amer) > 60 (> 60) 12/14/18 07:04 28 (6-26) H 12/14/18 07:04 Glucose 87 mg/dL (70-105) 12/14/18 07:04 286 (280-300) 12/14/18 07:04 Calcium 9.2 mg/dL (8.6-10.3) 12/14/18 07:04 Yellow (Yellow) 12/14/18 07:02 Clear (Clear) 12/14/18 07:02 5.5 pH Units (5.0-8.0) 12/14/18 07:02 Ur Specific Ider 1.026 (1.010-1.025) H 12/14/18 07:02 Negative mg/dL (Neg-Trace) 12/14/18 07:02 Normal mg/dL (Normal) 12/14/18 07:02 Negative mg/dL (Negative) 12/14/18 07:02 Negative (Negative) 12/14/18 07:02 Negative (Negative) 12/14/18 07:02 Negative (Negative) 12/14/18 07:02 Normal mg/dL (Normal) 12/14/18 07:02 Ur Leukocyte Esterase Negative (Negative) 12/14/18 07:02 Negative (Negative) 12/14/18 07:02 Salicylates < 2.5 mg/dL (15.0-30.0) L 12/14/18 07:04 Negative ng/mL (Agllmt=291) 12/14/18 07:02 Acetaminophen < 10 mcg/mL (10-20) L 12/14/18 07:04 Ur Barbiturates Screen Negative ng/mL (Kniwgi=088) 12/14/18 07:02 Ur Phencyclidine Scrn Negative ng/mL (Cutoff=25) 12/14/18 07:02 Ur Amphetamines Screen Negative ng/mL (Bnwfch=4786) 12/14/18 07:02 U Benzodiazepines Scrn Negative ng/mL (Zhawre=111) 12/14/18 07:02 Negative ng/mL (Cutoff= 300) 12/14/18 07:02 U Marijuana (THC) Screen Negative ng/mL (Cutoff = 50) 12/14/18 07:02 Ur Drug Screen Interp See Below 12/14/18 07:02 Ethyl Alcohol < 10 mg/dL (Less than 10) 12/14/18 07:04 Assessment and Plan (1) Depression Current visit: Yes Status: Acute Plan: Admit inpatient for safety and stabilization, Close observation, Suicide Precautions per unit protocol, Encourage participation in unit milieu, Group Therapy, Monitor sleep, Monitor appetite Risks, benefits, side effects, alternatives discussed w/pt: Yes (R/B/SE explained for Zoloft. Agreed Started 50 mg) Patient agreeable to treatment: Yes Plans for Post Hospital Care: Transfer Other (May need housing in a halfway facility or other living environemnt pending DV charges against Mother in home.) Estimated Length of Stay (Days): 5 (2) Amphetamine abuse Current visit: Yes Status: Acute Plan: Admit inpatient for safety and stabilization, Close observation, Suicide Precautions per unit protocol, Encourage participation in unit milieu, Monitor sleep, Monitor appetite Risks, benefits, side effects, alternatives discussed w/pt: Yes Patient agreeable to treatment: Yes Plans for Post Hospital Care: Transfer Other Estimated Length of Stay (Days): 5
[2018-12-15] MEDS: hydrOXYzine pamoate 25 MG CAPSULE PO PRN (20:56)
[2018-12-15] MEDS: traZODone 50 MG TABLET PO PRN (20:57)
--- NOTE | 2018-12-16 10:08 | Psychiatry Progress Note ---
Date of Encounter: 12/16/18 Time of Encounter: 09:45 Subjective Interval history: Patient states she is feling "better today." Her mother visited last evening and they spoke. Her mother found the papers she was missing and was upset about. Patient spoke voluntarily about how she could have, should have, handled the situation different at home besides putting a knife to her throat. She gave multiple examples. When I asked her why she did not do those things then, she said it was in "the heat of the moment." When I told her that there would be other "heat of the moment" times, she said she knew that . She knows she needs to get counseling services, it is also court ordered: Anger Management. She slept 11 hours soundly. No adverse side effects of starting the Zoloft. She does not feel anxious or depressed. She denies SI/HI. She wants to continue on with the medication. Reminded her that her commanding officer motorized squad needs to contact us on Tuesday regarding D/C planning. He never did yesterday. Review of Systems Psychiatric: Reports: depression, anxiety, abnormal sleep pattern, suicidal ideation, change in appetite, anhedonia, difficulty concentrating, hopelessness, irritability Results - Vital Signs Vital Signs: Temp Pulse Resp BP Pulse Ox 98.1 F 80 16 110/76 98 12/16/18 08:57 12/16/18 08:57 12/16/18 08:57 12/16/18 08:57 12/16/18 08:57 Assessment and Plan (1) Depression Current visit: Yes Status: Acute Plan: Continue hospitalization, Close observation, Suicide Precautions per unit protocol, Encourage participation in unit milieu, Group Therapy, Monitor sleep, Monitor appetite, Family/Supportive other meeting Risks, benefits, side effects, alternatives discussed w/pt: Yes (Continue Zoloft. Agreeable) Patient agreeable to treatment: Yes (Need to speak to her commanding officer motorized squad for DC planning) (2) Amphetamine abuse Current visit: Yes Status: Acute Risks, benefits, side effects, alternatives discussed w/pt: Yes Patient agreeable to treatment: Yes Consult Discharge Plan - Plan Referrals: NONE,PCP [Primary Care Provider] - Psychiatry Exam - Constitutional Vitals: Temp Pulse Resp BP Pulse Ox 98.1 F 80 16 110/76 98 12/16/18 08:57 12/16/18 08:57 12/16/18 08:57 12/16/18 08:57 12/16/18 08:57 General appearance: age & developmentally appropriate, well-groomed, obese - Musculoskeletal Gait: normal Station: relaxed Strength & Tone: normal for patient - Psychiatric Patient Orientation: Yes Person, Yes Time, Yes Place, Yes Circumstance Level of alertness: Alert Behavior: calm, cooperative Psychomotor activity: Normal Eye Contact: Maintains Eye Contact Mood Description: Anxious (mildly) Affect description: congruent with mood Speech Volume: Normal Speech pattern: normal rate, normal rhythm, normal tone, fluent Language & Vocabulary: consistent with education Thought Process: Intact Thought Content: Yes Intact Attention Span Ability: Capable of Focused Attention Memory Description: Grossly Intact Patient Reliability: Questionable Historian Fund of knowledge: Yes average Intelligence Estimate: Below Average Judgment: Good Insight: Partial
[2018-12-16] MEDS: traZODone 50 MG TABLET PO PRN (20:51)
[2018-12-16] MEDS: hydrOXYzine pamoate 25 MG CAPSULE PO PRN (20:51)
--- NOTE | 2018-12-17 08:39 | Psychiatry Progress Note ---
Date of Encounter: 12/17/18 Time of Encounter: 08:25 Subjective Interval history: Christal tells me she is doing "better". She denies any SI/HI, anger or agitation. She is sleeping well with the Trazodone and denies any adverse side effects of the Zoloft. Her mood is stable and staff have not noticed any issues with her. She tells me that her mother has signed paperwork with the court that she is allowed to be at home with them, even though they filed the domestic violence charges. She aslo has the outpatient court ordered therapy lined up. I asked her to have her mother bring copies of that paperwork in for discharge planning. She said she would. Review of Systems Psychiatric: Reports: depression, anxiety, abnormal sleep pattern, suicidal ideation, change in appetite, anhedonia, difficulty concentrating, hopelessness, irritability Results - Vital Signs Vital Signs: Temp Pulse Resp BP Pulse Ox 98.6 F 75 16 121/79 98 12/16/18 20:46 12/16/18 20:46 12/16/18 20:46 12/16/18 20:46 12/16/18 20:46 Assessment and Plan (1) Depression Current visit: Yes Status: Acute Plan: Continue hospitalization, Close observation, Suicide Precautions per unit protocol Risks, benefits, side effects, alternatives discussed w/pt: Yes (Continue Zoloft. Agreeable) Patient agreeable to treatment: Yes (Mother bringing in court paperwork. ) (2) Amphetamine abuse Current visit: Yes Status: Acute Risks, benefits, side effects, alternatives discussed w/pt: Yes Patient agreeable to treatment: Yes Consult Discharge Plan - Plan Referrals: NONE,PCP [Primary Care Provider] - Psychiatry Exam - Constitutional Vitals: Temp Pulse Resp BP Pulse Ox 98.6 F 75 16 121/79 98 12/16/18 20:46 12/16/18 20:46 12/16/18 20:46 12/16/18 20:46 12/16/18 20:46 General appearance: age & developmentally appropriate, obese - Musculoskeletal Gait: normal Station: relaxed Strength & Tone: normal for patient - Psychiatric Patient Orientation: Yes Person, Yes Time, Yes Place, Yes Circumstance Level of alertness: Alert Behavior: calm, cooperative Psychomotor activity: Normal Eye Contact: Maintains Eye Contact Mood Description: Euthymic/stable Affect description: congruent with mood Speech Volume: Normal Speech pattern: normal rate, normal rhythm, normal tone, fluent Language & Vocabulary: consistent with education Thought Process: Intact Thought Content: Yes Intact Attention Span Ability: Capable of Focused Attention Memory Description: Grossly Intact Patient Reliability: Questionable Historian Fund of knowledge: Yes average Intelligence Estimate: Average Judgment: Good Insight: Partial
[2018-12-17] MEDS: traZODone 50 MG TABLET PO PRN (21:57)
[2018-12-18 08:37] VITALS: BP 114/79
--- NOTE | 2018-12-18 11:55 | Discharge Summary ---
Date of Encounter: 12/18/18 Time of Encounter: 12:00 Diagnosis - Discharge Diagnosis (1) Depression Status: Acute (2) Amphetamine abuse Status: Acute Medications - Discharge Medications Prescriptions: hydrOXYzine pamoate [HydrOXYzine Pamoate] 25 mg PO TID PRN 30 Days #30 capsule PRN Reason: Anxiety traZODone [TraZODone] 50 mg PO HS PRN 30 Days #30 tablet PRN Reason: Insomnia Sertraline [Zoloft] 50 mg PO DAILY 30 Days #30 tablet Sertraline [Zoloft] 50 mg PO DAILY 30 Days #30 tablet 12/18/18 [Rx] hydrOXYzine pamoate [HydrOXYzine Pamoate] 25 mg PO TID PRN 30 Days #30 capsule 12/18/18 [Rx] traZODone [TraZODone] 50 mg PO HS PRN 30 Days #30 tablet 12/18/18 [Rx] Allergy/AdvReac Type Severity Reaction Status Date / Time No Known Allergies Allergy Verified 12/15/18 13:05 Results Procedures and tests throughout hospitalization: Completed Lab Orders Category Date Time Status Acetaminophen Stat Lab 12/14/18 07:04 Completed Basic Metabolic Panel Stat Lab 12/14/18 07:04 Completed Complete Blood Count [HEME] Stat Lab 12/14/18 07:04 Completed Drug Screen, Urine [UCHEM] Stat Lab 12/14/18 07:02 Completed Ethanol Stat Lab 12/14/18 07:04 Completed Test Result, Urine [URIN] Stat Lab 12/14/18 07:02 Completed Salicylate Stat Lab 12/14/18 07:04 Completed Urinalysis reflex Microscopic [URIN] Stat Lab 12/14/18 07:02 Completed Provider Date of admission: 12/15/18 10:53 Primary care physician: PCP NONE Psychiatry Exam - Constitutional Vitals: Temp Pulse Resp BP Pulse Ox 98.2 F 80 18 114/79 99 12/18/18 08:36 12/18/18 08:36 12/18/18 08:36 12/18/18 08:36 12/18/18 08:36 General appearance: age & developmentally appropriate - Musculoskeletal Gait: normal Station: relaxed Strength & Tone: normal for patient - Psychiatric Patient Orientation: Yes Person, Yes Time, Yes Place, Yes Circumstance Level of alertness: Alert, Follows commands Behavior: calm Psychomotor activity: Normal Eye Contact: Maintains Eye Contact Mood Description: Euthymic/stable Affect description: congruent with mood Speech Volume: Normal Speech pattern: normal rate, normal rhythm, normal tone, fluent Language & Vocabulary: consistent with education Thought Process: Intact, Logical, Linear, Goal Oriented Thought Content: Yes Intact Attention Span Ability: Capable of Focused Attention Memory Description: Grossly Intact Patient Reliability: Reliable Historian Fund of knowledge: Yes average Intelligence Estimate: Average Judgment: Good Insight: Full Hospital Course Hospital course: Ms. Womack is a 23 year old female who was admitted to [facility] after being brought to the emergency room having it is suicidal gesture of sticking a knife to her throat. She explains she did this after getting angry and agitated at her parents over her court appearance that day and losing her court paperwork. Patient discussed her own mental health issues and substance abuse issues to me at intake. She acknowledged her depression, anxiety and wanted treatment for this as well as anger management, which she is now court ordered. She consented to starting Zoloft 50 mg PO Q day targeting her depression and anxiety after being explaining to her the R/B/SE. She it was explained to her that there was Vistaril that she could take as needed for her anxiety during the day if she had breakthrough anxiety. And trazodone in the evening if she was having problems sleeping. Patient denied any adverse side effects of these medications while she was on the unit. Patient had visits with her mother. Legal issues were explained to the social media coordinator via patient's mother. The courts are aware that the patient is living in the home even though the patient had been convicted of domestic violence with her mother as the victim. She is allowed to go live in her parents home. Patient remains stable on the unit. No thoughts of hurting herself or anybody else. Her depression and anxiety stabilized; her mood improved. She denied any auditory or visual hallucinations. She denied any mind reading, thought control or paranoia. She will be discharged back to her father and mother's home in stable condition. She has follow-up appointments arranged, which she verbalized understanding. She will continue to take her medications as recommended. Does patient wish to continue nicotine replacement upon disc: No (NA) - Time Spent with Patient Total time spent providing and/or coordinating discharge services: 20 min Less than 30 minutes Specific discharge activities: Follow up with court mandated out patient anger management classes and further mental health treatment Assessment and Plan - Patient/Caregiver Discharge Instructions Activity: resume usual activities as tolerated Diet: regular diet - Follow up [facility] - 12/22/18 8:30 am ([facility] does walk-in intakes for drug and alcohol counseling on Fridays from 9:00 AM to 11:00 AM. If you can be at the office at 8:30 AM this Tuesday to do paperwork, you can be seen by the counselor at 9:00 AM for your intake. You have an appointment scheduled for Saturday, December 22, 2018 at 8:30 AM with Ailyn Scott for an initial intake assessment. This appointment typically takes 1 1 hours and will cover your current symptoms and goals for treatment. Please complete the New Patient Intake Packet provided to you by [facility] staff and bring this with you to this appointment. Please also bring your insurance card, identification, proof of residence (utility bill or similar piece of mail), and proof of income (if applicable). If you are unable to keep this appointment, please call the office at the number above as soon as possible. ) Functional capacity at discharge: independent ambulation Overall status at discharge: Stable Disposition: Home, Self-Care Quality - Multiple Antipsychotics Patient discharged on 2 or more antipsychotic medications: No Procedures - Procedures Procedures: Medication Management, Crisis Stabilization, Supportive Therapy, Group Therapy, Psychoeducational Therapy
== END 2018-12-18 14:30 | disposition home or self-care (01) | DRG 384 ==
LOC: EMEROOARM 06:34 → INTOOBSV 12:39 → 1ANU 12:39
PROVIDERS: ADMIT Psychiatry & Neurology Psychiatry; ATTEND Psychiatry & Neurology Psychiatry

== ENCOUNTER 2020-03-28 11:58 | Inpatient (IN) ==
[2020-03-28 12:21] LABS: Basophils # 0.1 K/mcL (0.0-0.2); Basophils % 0.6 %; Eosinophils # 0.2 K/mcL (0.0-0.6); Hemoglobin 13.4 g/dL (11.5-15.4); Immature Granulocytes % 0.3 % (0-4); Lymphocytes # 3.3 K/mcL (0.6-4.6); Lymphocytes % 32.5 %; Mean Corpuscular HGB Conc 30.5 g/dL (31.6-35.5); Mean Corpuscular Hemoglobin 24.3 pg (28.0-33.3); Mean Corpuscular Volume 79.9 fL (83.0-100.0); Mean Platelet Volume 8.9 fL (9.4-12.4); Monocytes # 0.7 K/mcL (0.0-1.3); Monocytes % 7.1 %; Neutrophils # 5.8 K/mcL (1.6-8.9); Platelet Count 382 K/mcL (140-400); Red Blood Count 5.51 M/mcL (3.82-4.97); Red Cell Distribution Width 17.4 % (11.5-14.5); Segmented Neutrophils % 57.5 %
[2020-03-28 12:42] LABS: Acetaminophen < 10 mcg/mL (10-20); BUN/Creatinine Ratio 9 (6-26); Blood Urea Nitrogen 5 mg/dL (6-20); Calcium 9.5 mg/dL (8.6-10.3); Carbon Dioxide 24 mEq/L (23-29); Chloride 106 mEq/L (98-107); Chol/HDL Ratio 5.3 (0-4.9); Cholesterol 165 mg/dL (< 200); Ethanol < 10 mg/dL (Less than 10); Glucose 81 mg/dL (70-105); HDL Cholesterol 31 mg/dL (40-59); LDL Cholesterol,Calculated 119 mg/dL (< 100); Osmolality,Calculated 282 (280-300); Salicylate < 2.5 mg/dL (15.0-30.0); Sodium 138 mEq/L (136-145); Triglycerides 74 mg/dL (< 150); eGFR For African Americans > 60 (> 60); eGFR For Non-African Americans > 60 (> 60)
[2020-03-28 12:45] LABS: Bilirubin,Urine Small (Negative); Blood,Urine Negative (Negative); Clarity,Urine Clear (Clear); Color,Urine Yellow (Yellow); Glucose,Urine (UA) Normal (Normal); Ketones,Urine 40 mg/dL (Negative); Leukocyte Esterase,Urine Negative (Negative); Nitrite,Urine Negative (Negative); PH,Urine 5.5 pH Units (5.0-8.0); Protein,Urine Trace mg/dL (Neg-Trace); Specific Gravity,Urine >= 1.030 (1.010-1.025); Urobilinogen,Urine Normal (Normal)
[2020-03-28 13:01] LABS: Amphetamine Screen,Urine Negative ng/mL (Cutoff=1000); Barbiturate Screen,Urine Negative ng/mL (Cutoff=200); Benzodiazepines Screen,Urine Negative ng/mL (Cutoff=200); Cannabinoid Screen,Urine Negative ng/mL (Cutoff = 50); Cocaine Screen,Urine Negative ng/mL (Cutoff= 300); Opiate Screen,Urine Negative ng/mL (Cutoff=300); Phencyclidine Screen,Urine Negative ng/mL (Cutoff=25)
[2020-03-28 13:03] LABS: Estimated Average Glucose 105 mg/dl
[2020-03-28] MEDS ORDERED: Haloperidol Lactate 5 MG/ML VIAL IM PRN (13:52)
[2020-03-28] MEDS ORDERED: haloperidoL 5 MG TABLET PO PRN (13:52)
[2020-03-28] MEDS ORDERED: Acetaminophen 325 MG TABLET PO PRN (13:52)
[2020-03-28] MEDS ORDERED: MOM Conc 10 ML UD.LIQ PO PRN (13:52)
[2020-03-28] MEDS ORDERED: hydrOXYzine pamoate 25 MG CAPSULE PO PRN (13:52)
[2020-03-28] MEDS ORDERED: *HR* LORazepam 2 MG/ML VIAL IM PRN (13:52)
[2020-03-28] MEDS ORDERED: Mag Hydrox/Al Hydrox/Simeth 30 ML UDC PO PRN (13:52)
[2020-03-28] MEDS ORDERED: *HR* LORazepam 1 MG TABLET PO PRN (13:52)
[2020-03-28] MEDS: QUEtiapine Fumarate 25 MG TABLET PO PRN (19:54)
[2020-03-28] MEDS: risperiDONE 1 MG TABLET PO SCH (19:54)
[2020-03-29] MEDS: risperiDONE 1 MG TABLET PO SCH ×2 (08:32→20:28)
[2020-03-29] MEDS: ARIPiprazole 10 MG TABLET PO SCH (08:32)
[2020-03-29] MEDS: Mirtazapine 15 MG TABLET PO SCH (20:27)
[2020-03-29] MEDS: QUEtiapine Fumarate 25 MG TABLET PO PRN (20:28)
[2020-03-30] MEDS: ARIPiprazole 10 MG TABLET PO SCH (08:30)
[2020-03-30] MEDS: QUEtiapine Fumarate 25 MG TABLET PO PRN (20:18)
[2020-03-30] MEDS: Mirtazapine 15 MG TABLET PO SCH (20:18)
[2020-03-30] MEDS: risperiDONE 1 MG TABLET PO SCH (20:18)
[2020-03-31 07:55] VITALS: BP 121/84
[2020-03-31] MEDS: ARIPiprazole 10 MG TABLET PO SCH (08:33)
[2020-03-31] MEDS ORDERED: risperiDONE 1 MG TABLET PO SCH (21:00)
[2020-04-01] MEDS ORDERED: NON-FORMULARY MEDICATION 1 EACH EACH (Doxepin Hcl 10 MG) PO SCH (09:00)
[2020-04-01] MEDS ORDERED: ARIPiprazole 10 MG TABLET PO SCH (09:00)
== END 2020-03-31 12:35 | disposition home or self-care (01) | DRG 751 ==
LOC: EMEROOARM 11:58 → 1ANU 13:51 → SUATTDRO 13:51 → 1ANU 14:00
PROVIDERS: ADMIT Psychiatry & Neurology Psychiatry; ATTEND Psychiatry & Neurology Forensic Psychiatry